=== PATIENT | female | born 1950 ===

== ENCOUNTER 2022-01-04 23:25 | Emergency (ER) | payer MEDICARE, SELFPAY ==
[2022-01-04 23:28] VITALS: BP 183/86; PULSE 89; RESP 18; TEMP 37.1; O2SAT 99
[2022-01-04 23:55] LABS: Add Manual Diff / Slide Review NO; Basophils Absolute Auto 100 /uL (0-100); Basophils Percent Auto 0.9 % (0-2); Eosinophils Absolute Auto 500 /uL (0-450); Eosinophils Percent Auto 6.6 % (2-4); Hematocrit 42.9 % (36-46); Hemoglobin 14.6 g/dL (12.0-16.0); Lymphocytes Absolute Auto 2100 /uL (1100-4500); Lymphocytes Percent Auto 27.8 % (25-40); Mean Corpuscular Hemoglobin 30.5 PG (26-34); Mean Corpuscular Volume 89.5 fL (80-100); Monocytes Absolute Auto 600 /uL (0-900); Monocytes Percent Auto 7.9 % (3-14); Neutrophils Absolute Auto 4400 /uL (1500-7000); Neutrophils Percent Auto 56.8 % (50-75); Platelet Count 246 X10^3/uL (150-400); Red Blood Cell Count 4.79 X10^6/uL (4.0-5.2); White Blood Cell Count 7.7 X10^3/uL (4.5-11.0)
[2022-01-05 00:12] LABS: Alanine Aminotransferase 16 IU/L (<35); Albumin 4.4 g/dL (3.5-5.0); Albumin Globulin Ratio 1.3 (1.0-2.8); Alkaline Phosphatase 47 U/L (38-126); Aspartate Aminotransferase 24 IU/L (14-36); Bilirubin Total 0.5 mg/dL (0.2-1.3); Blood Urea Nitrogen 27 mg/dL (7-17); Calcium 9.6 mg/dL (8.4-10.2); Carbon Dioxide 30 mmol/L (22-32); Chloride 105 mmol/L (98-107); Creatine Kinase 38 U/L (30-135); Estimated Glomerular Filt Rate 48 mL/min (>60); Globulin 3.5 g/dL (1.7-4.1); Glucose 109 mg/dL (80-110); HEMOLYSIS < 15 (0-50); Lipase 136 U/L (23-300); Magnesium 2.3 mg/dL (1.6-2.3); Potassium 4.1 mmol/L (3.4-5.1); Sodium 142 mmol/L (137-145); Total Protein 7.9 g/dL (6.3-8.2)
[2022-01-05 00:22] LABS: Troponin I < 0.012 ng/mL (0.01-0.034)
--- NOTE | 2022-01-05 00:55 | ED.EXTPRO ---
HPI - Extremity Problem General Chief complaint: Extremity Problem,Nontraumatic Stated complaint: pain in groin & behind knee/swollen and hot Time Seen by Provider: 01/05/22 00:55 Source: patient Mode of arrival: Ambulatory Related Data Allergies Allergy/AdvReac Type Severity Reaction Status Date / Time banana Allergy Verified 01/04/22 23:34 meperidine [From Demerol] Allergy Verified 01/04/22 23:34 Exam Initial Vital Signs Initial Vital Signs: Vital Signs Temperature 98.7 F 01/04/22 23:28 Pulse Rate 89 01/04/22 23:28 Respiratory Rate 18 01/04/22 23:28 Blood Pressure 183/86 H 01/04/22 23:28 Pulse Oximetry 99 01/04/22 23:28 Course Orders Ordered: ED Orders 01/04/22 23:40 Complete Blood Count AUTO DIFF Stat Comprehensive Metabolic Panel Stat Lipase Stat Magnesium Stat Troponin & CK Cardiac Panel Stat Vital Signs Vital signs: Vital Signs - 8 hr 01/04/22 23:28 Temperature 98.7 F Pulse Rate 89 Respiratory Rate 18 Blood Pressure 183/86 H Pulse Oximetry 99 MDM - Extremity (Nontraumatic) Lab Data Result diagrams: 01/04/22 23:40 01/04/22 23:40 Labs: Lab Results 01/04/22 01/04/22 Range/Units 23:40 23:40 WBC 7.7 (4.5-11.0) X10^3/uL RBC 4.79 (4.0-5.2) X10^6/uL Hgb 14.6 (12.0-16.0) g/dL Hct 42.9 (36-46) % MCV 89.5 (80-100) fL MCH 30.5 (26-34) PG MCHC 34.0 (30-36) % RDW 14.0 (11.6-14.8) % Plt Count 246 (150-400) X10^3/uL Neut % (Auto) 56.8 (50-75) % Lymph % (Auto) 27.8 (25-40) % [place] % (Auto) 7.9 (3-14) % Eos % (Auto) 6.6 H (2-4) % Baso % (Auto) 0.9 (0-2) % Neut # (Auto) 4400 (2128-6882) /uL Lymph # (Auto) 2100 (7103-4218) /uL [place] # (Auto) 600 (0-900) /uL Eos # (Auto) 500 H (0-450) /uL Baso # (Auto) 100 (0-100) /uL Sodium 142 (137-145) mmol/L Potassium 4.1 (3.4-5.1) mmol/L Chloride 105 (98-107) mmol/L Carbon Dioxide 30 (22-32) mmol/L BUN 27 H (7-17) mg/dL Creatinine 1.23 H (0.52-1.04) mg/dL Estimated GFR 48 L (>60) mL/min BUN/Creatinine Ratio 22.0 (6-22) Glucose 109 (80-110) mg/dL Calcium 9.6 (8.4-10.2) mg/dL Magnesium 2.3 (1.6-2.3) mg/dL Total Bilirubin 0.5 (0.2-1.3) mg/dL AST 24 (14-36) IU/L ALT 16 (<35) IU/L Alkaline Phosphatase 47 (38-126) U/L Total Creatine Kinase 38 (30-135) U/L CK-MB (CK-2) TNP CK-MB (CK-2) Rel Index TNP Troponin I < 0.012 (0.01-0.034) ng/mL Total Protein 7.9 (6.3-8.2) g/dL Albumin 4.4 (3.5-5.0) g/dL Globulin 3.5 (1.7-4.1) g/dL Albumin/Globulin Ratio 1.3 (1.0-2.8) Lipase 136 (23-300) U/L
--- NOTE | 2022-01-05 01:45 | ED_ITS ---
HPI - General Adult General Chief complaint: Extremity Problem,Nontraumatic Stated complaint: pain in groin & behind knee/swollen and hot Time Seen by Provider: 01/05/22 00:55 Source: patient Mode of arrival: Ambulatory History of Present Illness HPI narrative: 71-year-old woman with no significant medical history comes in complaining of right groin pain a red patch on the medial aspect of her right knee and a a swollen area on the right butler. The groin pain is been bothering her intermittently for the last number of months the other 2 findings were noticed this evening. Her children were concerned that she was developing a cellulitis and requested that she come in for further evaluation. She reports no fevers, cough, abdominal pain, vomiting, diarrhea. She has had no chest pain, dyspnea shortness of breath or lower extremity edema. She otherwise feels well and her only additional noted change is significant hair loss over the last month or so. Related Data Allergies Allergy/AdvReac Type Severity Reaction Status Date / Time banana Allergy Verified 01/04/22 23:34 meperidine [From Demerol] Allergy Verified 01/04/22 23:34 Review of Systems Review of Systems Narrative: Remainder of complete review of systems is otherwise unremarkable except for that included in the HPI. Exam Initial Vital Signs Initial Vital Signs: Vital Signs Temperature 98.7 F 01/04/22 23:28 Pulse Rate 89 01/04/22 23:28 Respiratory Rate 18 01/04/22 23:28 Blood Pressure 183/86 H 01/04/22 23:28 Pulse Oximetry 99 01/04/22 23:28 General: Healthy appearing, in no acute distress. Able to give a complete and coherent history. Well-nourished well-developed HEENT: Moist mucous membranes, normal sclera with reactive pupils, thinning hair without obvious scalp abnormalities Respiratory: Lungs are clear to auscultation, no wheezing no rales no rhonchi. Full and symmetrical air movement Cardiac: Regular rate and rhythm no murmurs no bruits Abdomen: Soft, nontender, good bowel tones, no flank pain Groin: Right groin shows no tenderness to palpation, no erythema or swelling, no significant inguinal adenopathy, there is no skin lesions to the outer labia on the right side and there is no tenderness with external or internal rotation of the hip joint. Skin: Warm and dry, no rashes Neurologic: Grossly neurologically intact with no obvious asymmetries or abnormalities Extremities: No trauma, well perfused. Area of concern on the medial aspect of the right knee has completely resolved at time of exam. The area of concern along the right butler is a varicose vein that returns to normal size when the leg is elevated with no evidence of skin breakdown or ulceration. Psych: Cooperative, appropriate insight and affect Course Orders Ordered: ED Orders 01/04/22 23:40 Complete Blood Count AUTO DIFF Stat Comprehensive Metabolic Panel Stat Lipase Stat Magnesium Stat Troponin & CK Cardiac Panel Stat Vital Signs Vital signs: Vital Signs - 8 hr 01/04/22 23:28 Temperature 98.7 F Pulse Rate 89 Respiratory Rate 18 Blood Pressure 183/86 H Pulse Oximetry 99 Medical Decision Making Lab Data Result diagrams: 01/04/22 23:40 01/04/22 23:40 Labs: Lab Results 01/04/22 01/04/22 Range/Units 23:40 23:40 WBC 7.7 (4.5-11.0) X10^3/uL RBC 4.79 (4.0-5.2) X10^6/uL Hgb 14.6 (12.0-16.0) g/dL Hct 42.9 (36-46) % MCV 89.5 (80-100) fL MCH 30.5 (26-34) PG MCHC 34.0 (30-36) % RDW 14.0 (11.6-14.8) % Plt Count 246 (150-400) X10^3/uL Neut % (Auto) 56.8 (50-75) % Lymph % (Auto) 27.8 (25-40) % [place] % (Auto) 7.9 (3-14) % Eos % (Auto) 6.6 H (2-4) % Baso % (Auto) 0.9 (0-2) % Neut # (Auto) 4400 (9994-4939) /uL Lymph # (Auto) 2100 (6001-4187) /uL [place] # (Auto) 600 (0-900) /uL Eos # (Auto) 500 H (0-450) /uL Baso # (Auto) 100 (0-100) /uL Sodium 142 (137-145) mmol/L Potassium 4.1 (3.4-5.1) mmol/L Chloride 105 (98-107) mmol/L Carbon Dioxide 30 (22-32) mmol/L BUN 27 H (7-17) mg/dL Creatinine 1.23 H (0.52-1.04) mg/dL Estimated GFR 48 L (>60) mL/min BUN/Creatinine Ratio 22.0 (6-22) Glucose 109 (80-110) mg/dL Calcium 9.6 (8.4-10.2) mg/dL Magnesium 2.3 (1.6-2.3) mg/dL Total Bilirubin 0.5 (0.2-1.3) mg/dL AST 24 (14-36) IU/L ALT 16 (<35) IU/L Alkaline Phosphatase 47 (38-126) U/L Total Creatine Kinase 38 (30-135) U/L CK-MB (CK-2) TNP CK-MB (CK-2) Rel Index TNP Troponin I < 0.012 (0.01-0.034) ng/mL Total Protein 7.9 (6.3-8.2) g/dL Albumin 4.4 (3.5-5.0) g/dL Globulin 3.5 (1.7-4.1) g/dL Albumin/Globulin Ratio 1.3 (1.0-2.8) Lipase 136 (23-300) U/L MDM Narrative Medical decision making narrative: groin pain:? no evidence of swollen lymph nodes, infection, hernia, skin abnormalities or other significant problems.? With description of deep inside type. pain I suspect that this may be related to developing hip arthritis.?? red spot on the medial aspect of leg: it has resolved completely.? I am not sure what it was but it is now gone swollen blood vessel on the surface of right butler.? uncomplicated varicosity hair loss: telogen effluvium post covid is suspected Discharge Plan Departure Patient Disposition: Home Clinical Impression: Acute telogen effluvium Groin pain Qualifiers: Laterality: right Qualified Code(s): R10.31 - Right lower quadrant pain Varicose vein of leg Qualifiers: Varicose vein complication: asymptomatic Laterality: right Qualified Code(s): I83.91 - Asymptomatic varicose veins of right lower extremity Activity Restrictions/Additional Instructions: Thank you for coming in today Regarding your groin pain, I see no evidence of swollen lymph nodes, infection, hernia, skin abnormalities or other significant problems. With your description of the deep inside type pain I suspect that this may be related to developing hip arthritis. It is reassuring that you have very little pain with rotating her hip out. Regarding the red spot on the medial aspect of your leg, it has resolved completely. I am not sure what it was but it is now gone Regarding the swollen blood vessel on the surface of your right butler. This is a varicose vein that is uncomplicated. If it is swollen most of the time and causing some achiness in your legs you can certainly use compression socks to make a difference. Regarding her hair loss, we spoke about all of the recent articles coming out with reports of hair loss after COVID. If all of these reports are correct, you should expect the majority of your hair to grow back in within the next 6-12 months. Please keep your appointment with your primary care physician to discuss all these issues.
== END 2022-01-05 01:52 | disposition home or self-care (01) ==
PROVIDERS: Emergency Provider Emergency Medicine
DX: L65.0 Telogen effluvium (principal); R10.31 Right lower quadrant pain; I83.91 Asymptomatic varicose veins of right lower extremity
CPT/HCPCS: 80053; 82550; 82553; 83690; 83735; 84484; 85025; 99281; 99283